=== PATIENT | female | born 1990 | race Caucasian/White ===

== ENCOUNTER 2024-06-28 06:01 | Day surgery (SDC) | payer BC, SELFPAY ==
[2024-06-26 15:48] VITALS: BMI 29.5
[2024-06-28 06:23] VITALS: BP 118/75; PULSE 95; RESP 18; TEMP 36.2; O2SAT 100
--- NOTE | 2024-06-28 06:48 | P.PNANES_ITS ---
[facility] Disclaimer: The information contained in this section may have been updated after the patient was seen, as this information can be updated by other users. Medical History (Updated 06/28/24 @ 06:28 by Puja Murray RN) Fainting spell Dyspepsia Migraines Motility disorder of intestine Pseudotumor cerebri Asthma Surgical History H/O wisdom tooth extraction S/P repair of medial meniscus root tear of right knee History of tonsillectomy History of cholecystectomy Family History (Updated 06/28/24 @ 06:28 by Puja Murray RN) Other Diabetes Parkinson disease Social History Smoking Status: Never smoker alcohol intake: never substance use type: denies use current occupational status: employed Travel in the last 8 weeks: None caffeine: Yes [facility] Anesthesia Checklist Patient Identification Patient Identification: Arm Band and Family Structural Data Admitted From: Home Planned Operative Procedure/s: EGD/Colonoscopy Consent for Planned Operative Procedure(s) Verified: Yes Verified Documents: Surgical Consent and History and Physical NPO Status Verified Time NPO: 00:00 Additional verifications Patient : No Anesthesia Reactions: No Hx Blood Transfusions: No Blood Transfusion Reaction: No Cephalosporin Allergy: Yes Previous Colonoscopy: Yes Airway Assessment Mallampati Score:: Class I Neurological Assessment Level of Consciousness: Awake, Alert, Appropriate and Follows Commands Hx Seizures: No Numbness or tingling in extremities: No Anesthesia Plan Anesthesia Risk discussed: Yes ASA Class: II Anesthesia Type: MAC Preoperative Comments Pre-Operative Comments: Rule out GI Bleed. Anemia. Histoy of Asthma with prn recue inhaler. Two teet implants, rear left side.
[2024-06-28] MEDS: LACTATED RINGERS 1000ML 1,000 ML 50 ML IV (06:49)
[2024-06-28 07:10] LABS: Urine Pregnancy, HCG Qual. Negative (Negative)
--- NOTE | 2024-06-28 07:11 | EXP.HP ---
History of Present Illness *Admission Date: 06/28/24 *Reason for visit:: Iron deficiency anemia *History of present illness: Ms. Herman is a 33-year-old female who is here for iron deficiency anemia and her hemoglobin was 10.1 with low iron levels. The patient has had parenteral iron infusions. The examination is deemed medically necessary for EGD and colonoscopy. The patient has been seen, interviewed and examined prior to the procedure by both myself and the anesthesia provider. [facility] Disclaimer: The information contained in this section may have been updated after the patient was seen, as this information can be updated by other users. Medical History (Updated 06/28/24 @ 06:28 by Puja Murray RN) Fainting spell Dyspepsia Migraines Motility disorder of intestine Pseudotumor cerebri Asthma Surgical History H/O wisdom tooth extraction S/P repair of medial meniscus root tear of right knee History of tonsillectomy History of cholecystectomy Family History (Updated 06/28/24 @ 06:28 by Puja Murray RN) Other Diabetes Parkinson disease Social History (Updated 06/28/24 @ 06:51 by Ivan Couch CRNA) Smoking Status: Never smoker alcohol intake: never substance use type: denies use current occupational status: employed Travel in the last 8 weeks: None caffeine: Yes Have you lived/traveled outside [place] in past 30 days?: No Contact w/someone who lives/traveled outside US past 30 days?: No Exposure to someone with infectious disease in past 14 days?: No Do you have a fever (greater than 100.4 F or 38 C)?: No Have you tested positive for COVID-19: No Exposed to someone with COVID-19 in past 14 days?: No Do you have a sore throat?: No Do you have a cough?: No Do you have any weakness?: No Are you experiencing any nausea/vomitting?: No Do you have any diarrhea?: No Are you experiencing any unusual bleeding?: No Do you have any muscle aches/pain?: No Do you have any abdominal pain?: No Are you experiencing loss of taste or smell?: No Other Medical History Have you received the Pneumonia Vaccine: Yes Review of Systems Review of Systems Review of systems (narrative): Negative *Cardiovascular Comments: Negative *Gastrointestinal Comments: Negative *Genitourinary Comments: Negative *Musculoskeletal Comments: Negative *Neurologic Comments: Negative Meds Home Medications and Allergies Home Medications ?Medication ?Instructions ?Recorded ?Confirmed ?Type acetazolamide 500 mg 500 mg PO BID 05/17/24 06/28/24 History capsule,extended release albuterol 90 mcg-budesonide 80 2 puff inhalation NEEDED PRN 05/17/24 06/28/24 History mcg/actuation HFA aerosol inhaler Asthma (Airsupra) buspirone 10 mg tablet 10 mg PO BID 05/17/24 06/28/24 History cetirizine 10 mg tablet 10 mg PO DAILY 05/17/24 06/28/24 History fluticasone propionate 50 2 spray intranasal NEEDED PRN 05/17/24 06/28/24 History mcg/actuation nasal Asthma spray,suspension galcanezumab-gnlm 120 mg/mL 120 mg SQ MONTHLY 05/17/24 06/28/24 History subcutaneous pen injector (Emgality Pen) semaglutide (weight loss) 0.5 1 mg SQ WEEKLY 05/17/24 06/28/24 History mg/0.5 mL subcutaneous pen injector (Wegovy) triamcinolone acetonide 0.1 % 1 applic topical DAILY 05/17/24 06/28/24 History topical cream sodium,potassium,mag sulfates 17.5 See Rx Instructions PO .COMPLEX 06/20/24 06/28/24 Rx gram-3.13 gram-1.6 gram oral soln #354 mL (Suprep Bowel Prep Kit) New Prescriptions to Start Prescriptions: Allergies Allergy/AdvReac Type Severity Reaction Status Date / Time azithromycin Allergy Severe Hives Verified 06/28/24 06:19 Penicillins Allergy Severe Hives Verified 06/28/24 06:19 Sulfa (Sulfonamide Allergy Severe Anaphylaxis Verified 06/28/24 06:19 Antibiotics) Exam Data for Last 24 hours Vital signs and Labs for Last 24 Hours: Temp Pulse Resp BP Pulse Ox O2 Del Method 97.2 F L 95 H 18 118/75 100 Room Air 06/28/24 06:23 06/28/24 06:23 06/28/24 06:23 06/28/24 06:23 06/28/24 06:23 06/28/24 06:23 Laboratory Results - last 24 hr 02/26/25 06:13: Urine HCG, Qual Negative I & O for Last 24 hours: Intake & Output 06/25/24 06/26/24 06/27/24 06/28/24 23:59 23:59 23:59 23:59 Weight 183 lb *Routine HEENT Exam Head: Present normocephalic Eye: Present EOMI and PERRL ENT: Present mucous membranes moist *Routine Neck Exam Neck: Present supple *Routine Respiratory Exam Respiratory: Present CTA bilaterally *Routine Cardiovascular Exam Cardiovascular: Present RRR *Routine Abdominal Exam Abdominal: Present soft and normoactive bowel sounds; Absent tenderness *Routine Rectal Exam Rectal:: deferred *Routine Genitalia Exam Genitalia:: deferred *Routine Extremities Exam Extremities: Absent cyanosis, clubbing or edema *Routine Skin Exam Skin: Present warm; Absent rash *Routine Neurological Exam Neurological: Present alert and oriented X3 Assessment and Plan *Assessment and plan (1) Iron deficiency anemia: Status: Acute Category: Medical Code(s): D50.9 - Iron deficiency anemia, unspecified Plan A/P: 1. Iron deficiency anemia is the preprocedural diagnosis. The patient will be anesthetized/sedated using MAC sedation. The patient has been seen and examined. Cardiac and lung assessment prior to the examination is stable. Proceed with planned EGD and colonoscopy
--- NOTE | 2024-06-28 07:18 | HMH.PROCNOTE ---
[facility] Procedure Note Date: 06/28/24 Time: 07:40 Procedure Note:: Upper Endoscopy Procedure Report: Esophagogastroduodenoscopy with APC ablation, cold snare polypectomy and cold biopsies Endoscopost: Alvin Sifuentes II, MD Referring Physician: Oscar Lockett MD, [address], [place] [address]/Angelia Green MD [address] [facility] [place] [address] Date of Procedure: June 28, 2024 Equipment: Olympus GIF 190 standard upper endoscope Sedation: MAC sedation Indications: Ms. Herman is a 33-year-old female with iron deficiency anemia who is here for diagnostic panendoscopy. She has had 6 parenteral iron infusions. She did have panendoscopy in 2021 or 2022. She did start seeing our office and has had several tests including negative celiac serologies and normal sucrose C 13 breath test. She had a normal fecal elastase. Her gastric emptying study did show delayed gastric emptying. She has been on semaglutide. She does get some bright red blood per rectum once every couple of weeks (which may be hemorrhoidal) but reports no melena or hematochezia. She is not on any NSAIDs or aspirin. She has had no hematemesis. She does report right upper quadrant abdominal pain that is constant. She has bloating, nausea and early satiety. She also gets some belching and globus sensation. Her bowel movements are more regulated on the semaglutide. Procedure: Prior to the procedure, a history and physical exam was performed, and patient's medications and allergies were reviewed. The risks, benefits and alternatives of the sedation and procedure were discussed with the patient. All questions were answered and informed consent was obtained. The patient was brought to the procedure room. Patient identification and proposed procedure were verified by the physician and the nurse. The patient was placed in a left lateral decubitus position and the scope was passed under direct vision. Throughout the procedure, the patient's blood pressure, pulse, and oxygen saturations were monitored continuously. The upper GI endoscopy was accomplished without difficulty. The patient tolerated the procedure well. Findings: The scope was passed directly into the upper esophagus and advanced to the third portion of the duodenum. There were 4?5 small AVMs/angiodysplasias 1 of which had some adjacent heme and these were all ablated using APC ablation. These were all located in the first and second portion of the duodenum. There was a 12 mm polyp in the duodenal bulb removed via cold snare polypectomy to rule out adenoma. There was otherwise normal mucosa and conniventes and biopsies were taken from the bulb and first portion to rule out celiac disease. The scope was withdrawn through a otherwise normal duodenal bulb and pylorus into the stomach. There was some mild linear reactive gastropathy of the antrum and biopsies were obtained. The body and fundus of the stomach were grossly normal. Upon retroflexion there was no hiatal hernia. There was no gastric atrophy. The scope was then withdrawn into the esophagus. There was no evidence of reflux esophagitis or Knight's. There was no proximal esophageal inlet patch. There were tertiary contractions and evidence of moderate esophageal dysmotility. The remainder of the esophageal mucosa was normal. Impression: 1. Nonerosive GERD with moderate esophageal dysmotility 2. Duodenal angiodysplasias (4-5) status post APC ablation 3. Duodenal bulb polyp (12 mm) status post snare removal 4. Mild linear reactive gastropathy of antrum Plan: I will discuss the findings with the patient and family. I do feel that the angiodysplasia/AVMs are possibly the cause of her iron deficiency anemia. In that regard, I would recommend PillCam. I will follow-up the duodenal polyp histology as well to rule out adenoma. I will proceed with diagnostic colonoscopy.
[2024-06-28 07:23] VITALS: O2SAT 100
--- NOTE | 2024-06-28 07:40 | HMH.PROCNOTE ---
[facility] Procedure Note Date: 06/28/24 Time: 07:52 Procedure Note:: Colonoscopy Procedure Report: Colonoscopy with monopolar ablation/coagulation of internal hemorrhoids Endoscopist: Alvin Sifuentes II, MD Referring Physician: Oscar Lockett MD, [address], [place] [address]/Angelia Green MD [address] [facility] [place] [address] Date of Procedure: June 28, 2024 Equipment: Olympus PCF 190 pediatric colonoscope Sedation: MAC sedation Indications: Ms. Herman is a 33-year-old female with iron deficiency anemia who is here for diagnostic panendoscopy. She has had 6 parenteral iron infusions. She did have panendoscopy in 2021 or 2022. She did start seeing our office and has had several tests including negative celiac serologies and normal sucrose C 13 breath test. She had a normal fecal elastase. Her gastric emptying study did show delayed gastric emptying. She has been on semaglutide. She does get some bright red blood per rectum once every couple of weeks (which may be hemorrhoidal) but reports no melena or hematochezia. She is not on any NSAIDs or aspirin. She has had no hematemesis. She does report right upper quadrant abdominal pain that is constant. She has bloating, nausea and early satiety. She also gets some belching and globus sensation. Her bowel movements are more regulated on the semaglutide. Procedure: Prior to the procedure, a history and physical exam was performed, and patient's medications and allergies were reviewed. The risks, benefits and alternatives of the sedation and procedure were discussed with the patient. All questions were answered and informed consent was obtained. The patient was brought to the procedure room. Patient identification and proposed procedure were verified by the physician and the nurse. The patient was placed in a left lateral decubitus position and the scope was passed under direct vision. Throughout the procedure, the patient's blood pressure, pulse, and oxygen saturations were monitored continuously. The colonoscopy was accomplished without difficulty. The patient tolerated the procedure well. Findings: On digital rectal examination there was normal rectal tone. There were no external hemorrhoids. The colonoscope was introduced through the anal canal to the rectum and advanced to the cecum. The ileocecal valve and appendiceal orifice were identified. The scope was advanced a short distance into the ileum which appeared grossly normal. The scope was then withdrawn into the colon. The cecum, ascending, transverse, descending, sigmoid and rectum were grossly normal. There were no mucosal abnormalities identified. Upon retroflexion within the rectum there were grade 1-2 internal hemorrhoids. 3 columns of hemorrhoids were ablated/coagulated using monopolar ablation to destruction. The preparation was excellent throughout with [place] Preparation Score of 9. The cecal time was 12 minutes. Impression: 1. Normal colonoscopy with intubation of the terminal ileum 2. Grade 1-2 internal hemorrhoids status post monopolar ablation/coagulation Plan: The patient had no findings attributable to her iron deficiency anemia on colonoscopy. I suspect that this is related to AVMs/angiodysplasias in the upper tract or possibly in the small bowel. We will discuss treatment options. The patient does have IBS and we will discuss further treatment options for her IBS and functional abdominal pain.
[2024-06-28 07:56] VITALS: BP 92/58; PULSE 95; RESP 14; TEMP 36.2; O2SAT 96
[2024-06-28 08:06] VITALS: BP 100/63; PULSE 78; RESP 14; O2SAT 99
[2024-06-28 08:16] VITALS: BP 114/83; PULSE 88; RESP 18; O2SAT 100
[2024-06-28 08:26] VITALS: BP 106/77; PULSE 75; RESP 18; O2SAT 100
== END 2024-06-28 08:35 | disposition home or self-care (01) ==
PROVIDERS: Visit Provider Internal Medicine Gastroenterology
PROC: 0DJ08ZZ Inspection of Upper Intestinal Tract, Via Natural or Artificial Opening Endoscopic (ICD-10-PCS; CPT 45378; principal; 2024-06-28 07:30)
DX: K21.9 Gastro-esophageal reflux disease without esophagitis (principal); K22.4 Dyskinesia of esophagus; K31.819 Angiodysplasia of stomach and duodenum without bleeding; K31.7 Polyp of stomach and duodenum; K31.9 Disease of stomach and duodenum, unspecified; K64.8 Other hemorrhoids; D50.9 Iron deficiency anemia, unspecified; K62.5 Hemorrhage of anus and rectum; R10.11 Right upper quadrant pain; R14.0 Abdominal distension (gaseous); R11.0 Nausea; R68.81 Early satiety
CPT/HCPCS: 43239; 43251; 43270; 45388; 81025; C2618; J7120

== ENCOUNTER 2024-07-09 12:25 | Outpatient (CLI) | payer BC, SELFPAY ==
[2024-07-09 13:32] LABS: Occult Blood,Stool Negative (Negative)
== END 2024-07-09 23:59 | disposition home or self-care (01) ==
LOC: LAB.DROPOF 12:27
PROVIDERS: Visit Provider Internal Medicine Gastroenterology
DX: D50.9 Iron deficiency anemia, unspecified (principal)
CPT/HCPCS: 82272; G0328